=== PATIENT | female | born 1935 | race Caucasian/White ===

== ENCOUNTER 2023-01-18 17:49 | Inpatient (IN) | payer MEDICARE, OTHER ==
[2023-01-18] MEDS ORDERED: Calcium Carbonate 500 MG ChewTAB PO PRN (20:01)
[2023-01-18] MEDS ORDERED: Senokot S 8.6-50 MG TAB PO PRN (20:01)
[2023-01-18] MEDS ORDERED: Acetaminophen 325 MG TAB PO PRN (20:01)
[2023-01-18] MEDS ORDERED: Glucagon 1 MG/ML KIT IM PRN (20:01)
[2023-01-18] MEDS ORDERED: Dextrose 5% in Water 1,000 ML IV PRN (20:01)
[2023-01-18] MEDS ORDERED: Dextrose 50% Abboject 50 ML SYRINGE SLOW IVP PRN (20:01)
[2023-01-18] MEDS ORDERED: Ondansetron PF 4 MG/2 ML Vial IVP PRN (20:01)
[2023-01-18] MEDS ORDERED: HumaLOG 300 UNITS/3 ML VIAL SC PRN (20:01)
[2023-01-18] MEDS ORDERED: Pantoprazole 40 MG VIAL IVP SCH (21:00)
[2023-01-18 21:03] LABS: Prothrombin Time 10.8 sec (9.5-12.1)
[2023-01-18] MEDS: Atorvastatin Calcium 10 MG TAB PO SCH (21:48)
[2023-01-18] MEDS: Donepezil HCl 5 MG TAB PO SCH (21:48)
[2023-01-18 21:58] LABS: Iron 9 ug/dL (50-170); Iron Binding Capacity, Total 364 mcg/dL (265-497); Magnesium 1.8 mg/dL (1.6-2.6)
[2023-01-19] MEDS ORDERED: Ziprasidone 20 MG VIAL IM SCH (01:45)
[2023-01-19] MEDS ORDERED: Sterile Water 10 ML VIAL FS PRN (01:45)
[2023-01-19] MEDS ORDERED: Sterile Water 10 ML ONE (01:48)
[2023-01-19] MEDS ORDERED: Lorazepam 2 MG/ML VIAL SLOW IVP SCH (03:30)
[2023-01-19 05:33] LABS: Anion Gap 15 mmol/L (10-20); BUN (Urea Nitrogen) 10 mg/dL (9.8-20.1); Calc. Creatinine Clearance 39 mL/min (70-130); Calcium 8.5 mg/dL (7.8-10.44); Carbon Dioxide 19 mmol/L (23-31); Chloride 111 mmol/L (98-107); Estimated GFR 44; Glucose 124 mg/dL (83-110); Potassium 4.1 mmol/L (3.5-5.1); Sodium 141 mmol/L (136-145)
[2023-01-19 06:08] LABS: #Basophils 0.1 10x3/uL (0.0-0.2); #Eosinphils 0.2 10x3/uL (0.0-0.5); #Monocytes 0.9 10x3/uL (0.0-1.1); #Neutrophils 4.9 10x3/uL (1.5-8.4); %Basophils 0.8 % (0.0-2.0); %Eosinophils 1.9 % (0.0-6.0); %Lymphocytes 22.7 % (18.0-47.0); %Neutrophils 63.1 % (40.0-75.0); Hemoglobin 7.7 g/dL (12.0-15.5); Mean Corpuscular HGB CONC 28.5 g/dL (32.0-36.0); Mean Corpuscular Hemoglobin 20.3 pg (27.0-33.0); Mean Corpuscular Volume 71.2 fl (81.6-98.3); Mean Platelet Volume 9.8 fl (7.4-10.4); Platelet Count 321 10x3/uL (150-450); RBC Distribution Width 24.7 % (11.5-14.5); Red Blood Cell (RBC) Count 3.79 10x6/uL (3.90-5.03); White Blood Cell (WBC) Count 7.7 10x3/uL (3.5-10.5)
[2023-01-19 06:10] LABS: Anisocytosis SLIGHT = 6-15 cells (100X) (0-5/hpf); Hypochromia SLIGHT = 6-15 cells (100X) (0-5/hpf); Microcytosis SLIGHT = 6-15 cells (100X) (0-5/hpf)
[2023-01-19] MEDS: Polyethylene Glycol 3350 17 GM Packet PO SCH ×2 (10:26→10:27)
[2023-01-19] MEDS: Multivitamin W/ Minerals 1 TAB PO SCH (10:27)
[2023-01-19] MEDS: Atenolol 25 MG TAB PO SCH ×2 (10:29→10:42)
[2023-01-19] MEDS: Ferrous Sulfate 325 MG TAB PO SCH ×2 (10:29→16:46)
[2023-01-19] MEDS: Iron, Sodium Ferric Gluconate 250 MG in Sodium Chloride 0.9% 250 ML 250 ML IVPB SCH (12:36)
[2023-01-19 16:06] LABS: Hematocrit 27.4 % (34.9-44.5); Hemoglobin 7.6 g/dL (12.0-15.5)
[2023-01-19] MEDS: Atorvastatin Calcium 10 MG TAB PO SCH (20:52)
[2023-01-19] MEDS: Donepezil HCl 5 MG TAB PO SCH (20:52)
[2023-01-19] MEDS ORDERED: Haloperidol Lactate 5 MG/ML VIAL IM SCH (23:45)
[2023-01-20 03:37] LABS: #Basophils 0.1 10x3/uL (0.0-0.2); #Eosinphils 0.4 10x3/uL (0.0-0.5); #Monocytes 1.3 10x3/uL (0.0-1.1); %Basophils 0.6 % (0.0-2.0); %Eosinophils 2.8 % (0.0-6.0); %Lymphocytes 14.4 % (18.0-47.0); %Monocytes 9.3 % (0.0-10.0); Hematocrit 28.1 % (34.9-44.5); Mean Corpuscular HGB CONC 28.5 g/dL (32.0-36.0); Mean Corpuscular Hemoglobin 20.1 pg (27.0-33.0); Mean Corpuscular Volume 70.6 fl (81.6-98.3); Mean Platelet Volume 9.9 fl (7.4-10.4); Platelet Count 338 10x3/uL (150-450); RBC Distribution Width 24.5 % (11.5-14.5); Red Blood Cell (RBC) Count 3.98 10x6/uL (3.90-5.03); White Blood Cell (WBC) Count 13.8 10x3/uL (3.5-10.5)
[2023-01-20 03:44] LABS: Anion Gap 15 mmol/L (10-20); BUN (Urea Nitrogen) 12 mg/dL (9.8-20.1); Calc. Creatinine Clearance 36 mL/min (70-130); Calcium 8.6 mg/dL (7.8-10.44); Carbon Dioxide 19 mmol/L (23-31); Chloride 108 mmol/L (98-107); Estimated GFR 41; Glucose 174 mg/dL (83-110); Potassium 4.2 mmol/L (3.5-5.1); Sodium 138 mmol/L (136-145)
[2023-01-20 04:16] LABS: Platelet Adequacy Comment Appears Adequate
[2023-01-20 04:18] LABS: Elliptocytes SLIGHT = 2-5 cells (100X) (0-1/hpf)
[2023-01-20 04:19] LABS: Anisocytosis SLIGHT = 6-15 cells (100X) (0-5/hpf); Hypochromia SLIGHT = 6-15 cells (100X) (0-5/hpf); Microcytosis SLIGHT = 6-15 cells (100X) (0-5/hpf)
[2023-01-20] MEDS ORDERED: Lorazepam 2 MG/ML VIAL SLOW IVP SCH (05:15)
[2023-01-20] MEDS: Atenolol 25 MG TAB PO SCH (09:29)
[2023-01-20 09:33] VITALS: BMI 27.0
[2023-01-20] MEDS: Ferrous Sulfate 325 MG TAB PO SCH ×2 (11:47→16:12)
[2023-01-20] MEDS: Multivitamin W/ Minerals 1 TAB PO SCH (11:47)
[2023-01-20] MEDS: Polyethylene Glycol 3350 17 GM Packet PO SCH (11:47)
[2023-01-20] MEDS: Iron, Sodium Ferric Gluconate 250 MG in Sodium Chloride 0.9% 250 ML 250 ML IVPB SCH (13:20)
[2023-01-20] MEDS: Atorvastatin Calcium 10 MG TAB PO SCH (22:25)
[2023-01-20] MEDS: Donepezil HCl 5 MG TAB PO SCH (22:25)
[2023-01-21 07:29] LABS: #Basophils 0.1 10x3/uL (0.0-0.2); #Eosinphils 0.4 10x3/uL (0.0-0.5); #Neutrophils 7.2 10x3/uL (1.5-8.4); %Basophils 0.7 % (0.0-2.0); %Eosinophils 3.6 % (0.0-6.0); %Lymphocytes 15.8 % (18.0-47.0); %Monocytes 9.5 % (0.0-10.0); %Neutrophils 69.5 % (40.0-75.0); Hemoglobin 7.7 g/dL (12.0-15.5); Mean Corpuscular HGB CONC 28.5 g/dL (32.0-36.0); Mean Corpuscular Hemoglobin 20.3 pg (27.0-33.0); Mean Corpuscular Volume 71.2 fl (81.6-98.3); Mean Platelet Volume 9.4 fl (7.4-10.4); Platelet Count 315 10x3/uL (150-450); RBC Distribution Width 25.4 % (11.5-14.5); Red Blood Cell (RBC) Count 3.79 10x6/uL (3.90-5.03); White Blood Cell (WBC) Count 10.3 10x3/uL (3.5-10.5)
[2023-01-21 07:45] LABS: ALT (SGPT) 8 U/L (8-55); AST (SGOT) 20 U/L (5-34); Alkaline Phosphatase 54 U/L (40-110); Anion Gap 13 mmol/L (10-20); BUN (Urea Nitrogen) 15 mg/dL (9.8-20.1); Bilirubin, Total 0.6 mg/dL (0.2-1.2); Calc. Creatinine Clearance 33 mL/min (70-130); Calcium 8.2 mg/dL (7.8-10.44); Carbon Dioxide 20 mmol/L (23-31); Chloride 110 mmol/L (98-107); Estimated GFR 38; Globulin 2.3 g/dL (2.4-3.5); Glucose 113 mg/dL (83-110); Potassium 3.7 mmol/L (3.5-5.1); Protein, Total 5.3 g/dL (5.8-8.1); Sodium 139 mmol/L (136-145)
[2023-01-21] MEDS: Atenolol 25 MG TAB PO SCH (09:43)
[2023-01-21] MEDS: Polyethylene Glycol 3350 17 GM Packet PO SCH (09:43)
[2023-01-21] MEDS: Multivitamin W/ Minerals 1 TAB PO SCH (09:44)
[2023-01-21] MEDS: Ferrous Sulfate 325 MG TAB PO SCH ×2 (09:44→17:39)
[2023-01-21] MEDS ORDERED: QUEtiapine 25 MG TAB PO SCH (21:00)
[2023-01-21] MEDS: Atorvastatin Calcium 10 MG TAB PO SCH (22:50)
[2023-01-21] MEDS: Donepezil HCl 5 MG TAB PO SCH (22:50)
[2023-01-22] MEDS ORDERED: Losartan Potassium 50 MG TAB PO SCH (09:00)
[2023-01-22] MEDS: Atenolol 25 MG TAB PO SCH (09:47)
[2023-01-22] MEDS: Polyethylene Glycol 3350 17 GM Packet PO SCH (09:47)
[2023-01-22] MEDS: Multivitamin W/ Minerals 1 TAB PO SCH (09:48)
[2023-01-22] MEDS: Ferrous Sulfate 325 MG TAB PO SCH ×2 (09:48→16:08)
[2023-01-22 12:30] VITALS: TEMP 99.8
[2023-01-22 12:59] VITALS: BP 182/77
== END 2023-01-22 16:47 | disposition home health service (06) | DRG 811 ==
LOC: CSHICU 19:35 → CSHTELE 01-20 15:03
PROVIDERS: ADMIT Internal Medicine; ATTEND Internal Medicine
PROC: 30233N1 Transfusion of Nonautologous Red Blood Cells into Peripheral Vein, Percutaneous Approach (ICD-10-PCS; principal; 2023-01-18)
DX: D62 Acute posthemorrhagic anemia (principal); G93.41 Metabolic encephalopathy; Z66 Do not resuscitate; E78.5 Hyperlipidemia, unspecified; D50.9 Iron deficiency anemia, unspecified; F03.90 Unspecified dementia, unspecified severity, without behavioral disturbance, psychotic disturbance, mood disturbance, and anxiety; N93.9 Abnormal uterine and vaginal bleeding, unspecified; N18.30 Chronic kidney disease, stage 3 unspecified; E11.22 Type 2 diabetes mellitus with diabetic chronic kidney disease; N95.0 Postmenopausal bleeding; I12.9 Hypertensive chronic kidney disease with stage 1 through stage 4 chronic kidney disease, or unspecified chronic kidney disease; D63.1 Anemia in chronic kidney disease; Z90.49 Acquired absence of other specified parts of digestive tract
CPT/HCPCS: 36415; 36416; 36430; 76856; 80048; 80053; 82728; 83540; 83550; 83735; 85025; 85610; 85730; 86850; 86900; 86901; 93005; 93010; C9113; J1630; J2060; J2916; J3486; J7050; P9016

== ENCOUNTER 2023-05-18 08:18 | Emergency (ER) | payer MEDICARE, OTHER ==
[2023-05-18 09:26] LABS: #Monocytes 0.8 10x3/uL (0.0-1.1); #Neutrophils 2.8 10x3/uL (1.5-8.4); %Basophils 0.4 % (0.0-2.0); %Eosinophils 0.4 % (0.0-6.0); %Monocytes 13.7 % (0.0-10.0); %Neutrophils 49.3 % (40.0-75.0); Hematocrit 28.5 % (34.9-44.5); Hemoglobin 8.9 g/dL (12.0-15.5); Mean Corpuscular HGB CONC 31.2 g/dL (32.0-36.0); Mean Corpuscular Hemoglobin 25.5 pg (27.0-33.0); Mean Corpuscular Volume 81.7 fl (81.6-98.3); Mean Platelet Volume 9.6 fl (7.4-10.4); Platelet Count 353 10x3/uL (150-450); RBC Distribution Width 13.6 % (11.5-14.5); Red Blood Cell (RBC) Count 3.49 10x6/uL (3.90-5.03); White Blood Cell (WBC) Count 5.6 10x3/uL (3.5-10.5)
[2023-05-18 09:32] LABS: ALT (SGPT) 20 U/L (8-55); AST (SGOT) 41 U/L (5-34); Albumin 3.4 g/dL (3.4-4.8); Alkaline Phosphatase 61 U/L (40-110); Anion Gap 17 mmol/L (10-20); BUN (Urea Nitrogen) 16 mg/dL (9.8-20.1); Bilirubin, Total 0.3 mg/dL (0.2-1.2); Calc. Creatinine Clearance 0 mL/min (70-130); Calcium 8.2 mg/dL (7.8-10.44); Carbon Dioxide 22 mmol/L (23-31); Chloride 104 mmol/L (98-107); Estimated GFR 42; Globulin 2.7 g/dL (2.4-3.5); Glucose 110 mg/dL (83-110); Potassium 4.4 mmol/L (3.5-5.1); Protein, Total 6.1 g/dL (5.8-8.1); Sodium 139 mmol/L (136-145)
[2023-05-18 09:38] LABS: Troponin I 0.024 ng/mL (< 0.028)
== END 2023-05-18 11:16 | disposition home or self-care (01) ==
LOC: CSHERS 08:18
DX: U07.1 COVID-19 (principal); I10 Essential (primary) hypertension; E11.9 Type 2 diabetes mellitus without complications
CPT/HCPCS: 71045; 80053; 83880; 84484; 85025; 93005

== ENCOUNTER 2023-10-07 13:05 | Emergency (ER) | payer MEDICARE ==
[2023-10-07 14:23] LABS: Bilirubin Neg (Negative); Blood, Urine Negative (Negative); Clarity Cloudy (Clear); Glucose, Urine (Dipstick) Normal (Negative); Ketone, Urine Negative (Negative); Leukocyte 100 (Negative); Nitrite Positive (Negative); Protein, Urine (Dipstick) 15 mg/dl (Neg-Trace); Urobilinogen Normal mg/dL (Less than 2)
[2023-10-07] MEDS ORDERED: Lidocaine 1% w/Epinephrine 1:200K 30 ML VIAL ONE (14:33)
[2023-10-07 14:41] LABS: Bacteria/HPF 4+ HPF (None Seen); CAUTI Indications for Culture Pelvic or flank pain; RBC/HPF 0-3 HPF (0-3); Squamous Epithelial 0-3 HPF (0-3)
[2023-10-07 14:42] LABS: Urine Culture Reflex No No
[2023-10-07] MEDS ORDERED: Fluconazole 100 MG TAB PO SCH (15:20)
== END 2023-10-07 15:33 | disposition home or self-care (01) ==
LOC: CSHERS 13:05
DX: N39.0 Urinary tract infection, site not specified (principal); N76.0 Acute vaginitis; L02.414 Cutaneous abscess of left upper limb; E11.9 Type 2 diabetes mellitus without complications; I10 Essential (primary) hypertension
CPT/HCPCS: 10060; 51701; 81001; 87070; 87077; 87086; 87186; 87205